=== PATIENT | female | born 1955 ===

== ENCOUNTER 2022-07-06 20:26 | Emergency (ER) | payer BC ==
--- OUTSIDE RECORDS SUMMARY | 2022-07-06 20:30 | XMS REPORT | Continuity of Care Document ---
:1955 Author Organization [facility] t Address [address] [place] [address] Care Team Providers Name Role Phone ANCELMO COLÓN Primary Care Physician Unavailable STACY LIVE Attending Clinician Unavailable Christy-Angela Gonzalez Attending Clinician Unknown, Attending Attending Clinician Unavailable ANGLEA GARCIA Attending Clinician Unavailable Mehrdad Bruce Attending Clinician Unavailable RIA ARGUETA Attending Clinician Unavailable Ria Vance Attending Clinician Doctor Unassigned, [place] Attending Clinician Unavailable SHANI BOUCHER Attending Clinician Unavailable Shani Guevara Attending Clinician MEME CARR Attending Clinician Unavailable Meme Vera Attending Clinician [phone] Jessee Sparks Attending Clinician JESSEE LU Attending Clinician Unavailable Provider, [facility] Attending Clinician Unavailable UNKNOWN, ATTENDING Attending Clinician Unavailable Lesli Eagle MD Attending Clinician LESLI EAGLE Attending Clinician Unavailable Kyle Graff MD Attending Clinician DC VINCENT Attending Clinician Unavailable CAOALBERTO Morris Christelle Attending Clinician Unavailable JOSE CAMARENA Attending Clinician Unavailable Sunil Patterson Attending Clinician SUNIL HSU Attending Clinician Unavailable Stacy Live DO Attending Clinician Only, Lcc Test Attending Clinician Unavailable Faustina Recinos RN Attending Clinician Unavailable Only, Web Test Attending Clinician Unavailable Jose Camarena MD Attending Clinician STACY LIVE Admitting Clinician Unavailable Ancelmo Colón Admitting Clinician Unavailable Stacy Live DO Admitting Clinician Payers Payer Name Policy Type Policy Number Effective Date Expiration Date [place] [facility] [place] [id number] 2017 00:00:00 OUT OF STATE Problems Condition Condition Condition Status Onset Resolution Last Treating Co mments Source Name Details Category Date Date Treatment Clinician Date Nausea and Nausea and Disease Active 2019-05 Overview : Univers vomiting, vomiting, - Added ity of intractabi intractabi 00:00: automatic [place] lity of lity of 00 ally from Medic al vomiting vomiting request Branc h not not for specified, specified, surgery unspecifie unspecifie [id number] d vomiting d vomiting type type Gastroesop Gastroesop Disease Active 2019-05 Overview : Univers hageal hageal 2- Formattin ity of reflux reflux 00:00: g of this [place] disease disease 00 note Medical without without might be Branch esophagiti esophagiti different s s from the original. Added automatic ally from request for surgery [id number] Colon Colon Disease Active 2019-05 Overview: Univer s cancer cancer 06-13 Formattin ity of screening screening 00:00: g of this [place] 00 note Medical might be Branch different from the original. Added automatic ally from request for surgery [id number] Tear of Tear of Disease Active 2010-05 Univers lateral lateral 07-08 [place]y of cartilage cartilage 00:00: [place] or [place] 00 Medical meniscus meniscus Branch of knee, of knee, current current Obesity Obesity Disease Active Overview: Univ ers 7-25 Formattin ity of 00:00: g of this [place] note Medical might be Branch different from the original. ICD10 Diagnosis Term Bungy Jump Master Utility HLD HLD Disease Active Overview: Univer s (hyperlipi (hyperlipi 5-27 Formattin ity of demia) demia) 00:00: g of this [place] note Medical might be Branch different from the original. ICD10 Diagnosis Term Bungy Jump Master Utility Essential Essential Disease Active Uni vers hypertensi hypertensi 5-27 it y of on, benign [place], benign [place] 00 Medical Branch ROYCE ROYCE Disease Active Univers (obstructi (obstructi 2-25 it y of ve sleep ve sleep 00:00: [place] apnea) apnea) Medical Branch Allergies, Adverse Reactions, Alerts Allergy Allergy Status Severity Reaction(s) Onset Inactive Treating Comm ents Source Name Type Date Date Clinician No Known DA Active [facility] Allergie 05-19 Clear s 00:00: [place] 00 [facility] NO KNOWN Drug Active [facility] ALLERGIE Class ity of S [facility] Social History Social Habit Start Date Stop Date Quantity Comments Source History of Cigarette Smoker Universi ty of tobacco use [facility] Exposure to 2022-04-06 2022-04-16 Not sure [facility] SARS-CoV-2 00:00:00 14:25:00 [place] Medical (event) Branch Alcohol intake 2022-04-16 2022-04-16 Current University of 00:00:00 00:00:00 non-drinker of [facility] alcohol (finding) Branch Tobacco use and 2020-04-11 2020-04-11 Smokeless tobacco Un iversity of exposure 00:00:00 00:00:00 non-user [facility] Sex Ass[birth year] Universit y of 00:00:00 00:00:00 [facility] Smoking Status Start Date Stop Date Source Smokes tobacco daily 2020-04-11 00:00:00 Univers ity of [facility] Medications Ordered Filled Start Stop Current Ordering Indication Dosage Frequency Signature Comments Components Source Medication Medication Date Date Medication? Clinician (SIG) Name Name cefdinir 2022- Yes [id number] 300mg Take 1 Un [place] 300 mg 06-28 capsule by ity of capsule 00:00: 05:59 mouth [place] 00 :00 every 12 Medical (twelve) Branch hours for 7 days. cephALEXin 2021-05- Yes [id number] 500mg Take 1 Univers 500 mg 06-17 capsule by ity of capsule 00:00: 05:59 mouth in [place] 00 :00 the Medical morning Branch and 1 capsule in the evening. Do all this for 7 days. benzonatate 2021-05- No [id number] 200mg Take 1 Univers 200 mg 05-1920 capsule by ity of capsule 00:00: 05:59 mouth 3 [place] 00 :00 (three) Medical times Branch daily as needed for Cough for up to 10 days. doxycycline 2021- No 100mg Take 1 Un [place] hyclate 100 08-15 tablet by it y of mg tablet 00:00: 04:59 mouth 2 [place] 00 :00 (two) Medical times Branch daily for 10 days. bromphenira 2021- No 5mL Take 5 mL Univers mine-pseudo 08-15 by mouth 4 i ty of ephedrine-D 00:00: 04:59 (four) [place] as M (BROMFED 00 :00 times Medical DM) 2-30-10 daily as Bran ch mg/5 mL needed for syrup Cold symptoms for up to 7 days. predniSONE 2021- No 20mg Take 1 Univ ers 20 mg 08-15 tablet by ity of tablet 00:00: 04:59 mouth [place] 00 :00 daily for Medical 5 days. Branch ofloxacin 2021- No [id number] 2[drp] Place 2 Univers 0.3 % 07-21 03-19 Drops in ity of ophthalmic 00:00: 04:59 right eye [place] solution 00 :00 4 (four) Medical times Branch daily for 5 days. erythromyci 2020- No .5[in_u 0.5 Inch, Univers n 11-12 07-05 s] Left Eye, ity of (ILOTYCIN) 10:00: 09:02 ONCE NOW, [place] 5 mg/gram 00 :00 1 dose, Medical (0.5 %) 11/12/20 Branch ophthalmic at 0500, ointment Routine 0.5 Inch ofloxacin 2020- No [id number] 1[drp] Place 1 Univers 0.3 % 11-12 [id number] Drop in ity of ophthalmic 00:00: 04:59 left eye 4 [place] solution 00 :00 (four) Medical times Branch daily for 5 days. ofloxacin 2020- No [id number] 1[drp] Place 1 Univers 0.3 % 11-12 [id number] Drop in ity of ophthalmic 00:00: 04:59 left eye 4 [place] solution 00 :00 (four) Medical times Branch daily for 5 days. ofloxacin 2020- No [id number] 1[drp] Place 1 Univers 0.3 % 11-12 [id number] Drop in ity of ophthalmic 00:00: 04:59 left eye 4 [place] solution 00 :00 (four) Medical times Branch daily for 5 days. cefdinir 0 Yes 300mg Take 300 Univ ers 300 mg 4-12 mg by ity of capsule 00:00: mouth (two) Medical times Branch daily. predniSONE 0 Yes TAKE 2 Unive rs 20 mg 4-12 TABLETS BY ity of tablet 00:00: MOUTH EVERY DAY Medical FOR 5 DAYS Branch cefdinir 2020-0 Yes 300mg Take 300 Univ ers 300 mg 4-12 mg by ity of capsule 00:00: mouth (two) Medical times Branch daily. predniSONE 2020-0 Yes TAKE 2 Unive rs 20 mg 4-12 TABLETS BY ity of tablet 00:00: MOUTH 00 EVERY DAY Medical FOR 5 DAYS Branch cefdinir 2020-0 Yes 300mg Take 300 Univ ers 300 mg 4-12 mg by ity of capsule 00:00: mouth (two) Medical times Branch daily. predniSONE 2020-0 Yes TAKE 2 Unive rs 20 mg 4-12 TABLETS BY ity of tablet 00:00: MOUTH 00 EVERY DAY Medical FOR 5 DAYS Branch cefdinir 2020-0 Yes 300mg Take 300 Univ ers 300 mg 4-12 mg by ity of capsule 00:00: mouth (two) Medical times Branch daily. predniSONE 2020-0 Yes TAKE 2 Unive rs 20 mg 4-12 TABLETS BY ity of tablet 00:00: MOUTH [place] 00 EVERY DAY Medical FOR 5 DAYS Branch cefdinir 2020-0 Yes 300mg Take 300 Univ ers 300 mg 4-12 mg by ity of capsule 00:00: mouth 2 [place] 00 (two) Medical times Branch daily. predniSONE 2020-0 Yes TAKE 2 Unive rs 20 mg 4-12 TABLETS BY ity of tablet 00:00: MOUTH [place] 00 EVERY DAY Medical FOR 5 DAYS Branch cefdinir 2020-0 Yes 300mg Take 300 Univ ers 300 mg 4-12 mg by ity of capsule 00:00: mouth 2 [place] 00 (two) Medical times Branch daily. predniSONE 2020-0 Yes TAKE 2 Unive rs 20 mg 4-12 TABLETS BY ity of tablet 00:00: MOUTH [place] 00 EVERY DAY Medical FOR 5 DAYS Branch cefdinir 2020-0 2- No 300mg Take 300 Uni vers 300 mg 4-12 04-07 mg by ity of capsule 00:00: 00:00 mouth 2 [place] 00 :00 (two) Medical times Branch daily. predniSONE 2020-0 2- No TAKE 2 Univ ers 20 mg 4-12 04-07 TABLETS BY ity of tablet 00:00: 00:00 MOUTH [place] 00 :00 EVERY DAY Medical FOR 5 DAYS Branch dextroamphe 2020-0 Yes 20mg Take 20 mg Univers tamine-amph 1-29 by mouth ity of etamine 17:17: daily. [place] (ADDERALL) 20 Medical 20 mg Branch tablet dextroamphe 2020-0 Yes 20mg Take 20 mg Univers tamine-amph 1-29 by mouth ity of etamine 17:17: daily. [place] (ADDERALL) 20 Medical 20 mg Branch tablet dextroamphe 2020-0 Yes 20mg Take 20 mg Univers tamine-amph 1-29 by mouth ity of etamine 17:17: daily. [place] (ADDERALL) 20 Medical 20 mg Branch tablet dextroamphe 2020-0 Yes 20mg Take 20 mg Univers tamine-amph 1-29 by mouth ity of etamine 17:17: daily. [place] (ADDERALL) 20 Medical 20 mg Branch tablet dextroamphe 2020-0 Yes 20mg Take 20 mg Univers tamine-amph 1-29 by mouth ity of etamine 17:17: daily. [place] (ADDERALL) 20 Medical 20 mg Branch tablet dextroamphe 1-0 Yes 20mg Take 20 mg Univers tamine-amph 1-29 by mouth ity of etamine 17:17: daily. [place] (ADDERALL) 20 Medical 20 mg Branch tablet dextroamphe 2021-0 Yes 20mg Take 20 mg Univers tamine-amph 1-29 by mouth ity of etamine 17:17: daily. [place] (ADDERALL) 20 Medical 20 mg Branch tablet dextroamphe 2021-0 Yes 20mg Take 20 mg Univers tamine-amph 1-29 by mouth ity of etamine 11:17: daily. [place] (ADDERALL) 20 Medical 20 mg Branch tablet dextroamphe 1-0 Yes 20mg Take 20 mg Univers tamine-amph 1-29 by mouth ity of etamine 11:17: daily. [place] (ADDERALL) 20 Medical 20 mg Branch tablet dextroamphe 2021-0 Yes 20mg Take 20 mg Univers tamine-amph 1-29 by mouth ity of etamine 11:17: daily. [place] (ADDERALL) 20 Medical 20 mg Branch tablet dextroamphe 1-0 Yes 20mg Take 20 mg Univers tamine-amph 1-29 by mouth ity of etamine 11:17: daily. [place] (ADDERALL) 20 Medical 20 mg Branch tablet dextroamphe 1-0 Yes 20mg Take 20 mg Univers tamine-amph 1-29 by mouth ity of etamine 11:17: daily. [place] (ADDERALL) 20 Medical 20 mg Branch tablet dextroamphe 1-0 Yes 20mg Take 20 mg Univers tamine-amph 1-29 by mouth ity of etamine 11:17: daily. [place] (ADDERALL) 20 Medical 20 mg Branch tablet dextroamphe 1-0 Yes 20mg Take 20 mg Univers tamine-amph 1-07 by mouth ity of etamine 18:10: daily. [place] (ADDERALL) 00 Medical 20 mg Branch tablet dextroamphe 2021-0 Yes 20mg Take 20 mg Univers tamine-amph 1-07 by mouth ity of etamine 18:10: daily. [place] (ADDERALL) 00 Medical 20 mg Branch tablet simethicone 2021-0 Yes PRN, Univer s (GAS RELIEF 05-17 Starting ity of (SIMETHICON 16:29: Ellen 05/17/20 [place] E)) 40 00 at 1029, Medical mg/0.6 mL Until Branch drops Discontinu ed, Routine, Intra-op lactated No 1000mL at 42 Unive rs ringers IV 05-17 01-07 mL/hr, ity of infusion 15:30: 15:29 1,000 mL, [place] as 1,000 mL 00 :00 IV Medical Infusion, Branch ONCE, 1 dose, Ellen 05/17/20 at 0930, Routine, Endo Pre-op dextroamphe Yes 20mg Take 20 mg Univers tamine-amph -06 by mouth ity of etamine 19:18: daily. [place] (ADDERALL) 42 Medical 20 mg Branch tablet PROZAC ORAL 2019-2019- [facility] Entered ity of 14:59: 00:00 [place] 42 :00 Medical Branch PROZAC ORAL 2019-2019- No None [facility] rs 06-12 Entered ity of 14:59: 00:00 [place] 42 :00 Medical Branch PROZAC ORAL 2019- 2020- No None [facility] rs 06-12 Entered ity of 14:59: 00:00 [place] 42 :00 Medical Branch dextroamphe 2019-05 Yes 20mg Take 20 mg Univers tamine-amph 2-02 by mouth ity of etamine 14:51: daily. [place] (ADDERALL) 38 Medical 20 mg Branch tablet dextroamphe 2019-05 Yes 20mg Take 20 mg Univers tamine-amph 2-02 by mouth ity of etamine 14:51: daily. [place] (ADDERALL) 38 Medical 20 mg Branch tablet dextroamphe 2019- Yes 20mg Take 20 mg Univers tamine-amph 2-02 by mouth ity of etamine 14:51: daily. [place] (ADDERALL) 38 Medical 20 mg Branch tablet dextroamphe 2019- Yes 20mg Take 20 mg Univers tamine-amph 2-02 by mouth ity of etamine 14:51: daily. [place] (ADDERALL) 38 Medical 20 mg Branch tablet dextroamphe 2019- Yes 20mg Take 20 mg Univers tamine-amph 2-02 by mouth ity of etamine 14:51: daily. [place] (ADDERALL) 38 Medical 20 mg Branch tablet WELLBUTRIN 2019-05 2020- No None Univer s ORAL 2-04-11 Entered ity of 14:50: 00:00 [place] 40 :00 Medical Branch WELLBUTRIN 2019-05- No None Univer s ORAL 2-04-11 Entered ity of 14:50: 00:00 [place] 40 :00 Medical Branch WELLBUTRIN 2019-05- No None Univer s ORAL 2-04-11 Entered ity of 14:50: 00:00 [place] 40 :00 Medical Branch omeprazole 2019-05 Yes [id number] 40mg Take 1 Univers 40 mg 2-02 capsule by ity of capsule 00:00: mouth [place] 00 daily. Medical Branch omeprazole 2019-05 Yes [id number] 40mg Take 1 Univers 40 mg 2-02 capsule by ity of capsule 00:00: mouth [place] 00 daily. Medical Branch omeprazole 2019-05 Yes [id number] 40mg Take 1 Univers 40 mg 2-02 capsule by ity of capsule 00:00: mouth [place] 00 daily. Medical Branch omeprazole 2019-05 Yes [id number] 40mg Take 1 Univers 40 mg 2-02 capsule by ity of capsule 00:00: mouth [place] 00 daily. Medical Branch omeprazole 2019-05 Yes [id number] 40mg Take 1 Univers 40 mg 2-02 capsule by ity of capsule 00:00: mouth [place] 00 daily. Medical Branch omeprazole 2019- Yes [id number] 40mg Take 1 Univers 40 mg 2-02 capsule by ity of capsule 00:00: mouth [place] 00 daily. Medical Branch omeprazole 2019- Yes [id number] 40mg Take 1 Univers 40 mg 2-02 capsule by ity of capsule 00:00: mouth [place] 00 daily. Medical Branch omeprazole 2019-05 Yes [id number] 40mg Take 1 Univers 40 mg 2-02 capsule by ity of capsule 00:00: mouth [place] 00 daily. Medical Branch omeprazole 2019-05- No [id number] 40mg Take 1 Univers 40 mg 2-02 - capsule by ity of capsule 00:00: 00:00 mouth [place] 00 :00 daily. Medical Branch omeprazole 2019-05- No [id number] 40mg Take 1 Univers 40 mg 2-02 -29 capsule by ity of capsule 00:00: 00:00 mouth [place] 00 :00 daily. Medical Branch sodium,pota 2019-05 2020- No [id number] 1U Take 1 Univers ssium,mag 2 12-03 Units by ity o f sulfates 00:00: 05:59 mouth [place] (SUPREP 00 :00 now for 1 Medical BOWEL PREP dose. Branch KIT) 17.5-3.13-1 .6 gram SolR sodium,pota 2019-05 2020- No [id number] 1U Take 1 Univers ssium,mag 2- 12-03 Units by ity o f sulfates 00:00: 05:59 mouth once [place] (SUPREP 00 :00 now for 1 Medical BOWEL PREP dose. Branch KIT) 17.5-3.13-1 .6 gram SolR sodium,pota 2019-05 2020- No [id number] 1U Take 1 Univers ssium,mag 06-12 12-03 Units by ity o f sulfates 00:00: 05:59 mouth once [place] (SUPREP 00 :00 now for 1 Medical BOWEL PREP dose. Branch KIT) 17.5-3.13-1 .6 gram SolR sodium,pota 2019-05 2020- No [id number] 1U Take 1 Univers ssium,mag 06-12 12-03 Units by ity o f sulfates 00:00: 05:59 mouth [place] (SUPREP 00 :00 now for 1 Medical BOWEL PREP dose. Branch KIT) 17.5-3.13-1 .6 gram SolR WELLBUTRIN Yes None Univers ORAL 1-04 Entered ity of 21:37: [address] PROZAC ORAL Yes None Univer s 1-04 Entered ity of 21:37: [address] WELLBUTRIN Yes None Univers ORAL 1-04 Entered ity of 21:37: [address] PROZAC ORAL Yes None Univer s 1-04 Entered ity of 21:37: [address] WELLBUTRIN Yes None Univers ORAL 1-04 Entered ity of 21:37: [address] PROZAC ORAL Yes None Univer s 1-04 Entered ity of 21:37: [address] hydrocodone Yes 1{tbl} Take 1 Tab Univers -acetaminop 1-04 by mouth ity of [place] (NORCO 00:00: every 6 [place] 5) 5-325 mg 00 (six) Medical tablet hours as Branch needed for Pain. hydrocodone Yes 1{tbl} Take 1 Tab Univers -acetaminop 1-04 by mouth ity of hen (NOR[place] 00:00: every 6 [place] 5) 5-325 mg 00 (six) Medical tablet hours as Branch needed for Pain. hydrocodone Yes 1{tbl} Take 1 Tab Univers -acetaminop 1-04 by mouth ity of hen (NOR[place] 00:00: every 6 [place] 5) 5-325 mg 00 (six) Medical tablet hours as Branch needed for Pain. hydrocodone 2020- No 1{tbl} Take 1 Tab Univers -acetaminop 1-04 12-02 by mouth ity of hen (NORCO 00:00: 00:00 every 6 [place] 5) 5-325 mg 00 :00 (six) Medical tablet hours as Branch needed for Pain. hydrocodone 2020- No 1{tbl} Take 1 Tab Univers -acetaminop 1-04 12-02 by mouth ity of hen (NORCO 00:00: 00:00 every 6 [place] 5) 5-325 mg 00 :00 (six) Medical tablet hours as Branch needed for Pain. hydrocodone 2020- No 1{tbl} Take 1 Tab Univers -acetaminop 1-04 12-02 by mouth ity of hen (NORCO 00:00: 00:00 every 6 [place] as 5) 5-325 mg 00 :00 (six) Medical tablet hours as Branch needed for Pain. losartan Yes 100mg Take 1 Tab Un beulah (COZAAR) 6-17 by mouth ity of 100 mg 00:00: daily. [place] tablet 00 Medical Branch losartan Yes 100mg Take 1 Tab Un beulah (COZAAR) 6-17 by mouth ity of 100 mg 00:00: daily. [place] tablet 00 Medical Branch losartan Yes 100mg Take 1 Tab Un beulah (COZAAR) 6-17 by mouth ity of 100 mg 00:00: daily. [place] tablet 00 Medical Branch losartan 2020- No 100mg Take 1 Tab U nivers (COZAAR) 10-25 by mouth ity of 100 mg 00:00: 00:00 daily. [place] tablet 00 :00 Medical Branch losartan 2020- No 100mg Take 1 Tab U nivers (COZAAR) 10-25 by mouth ity of 100 mg 00:00: 00:00 daily. [place] tablet 00 :00 Medical Branch losartan 2020- No 100mg Take 1 Tab U nivers (COZAAR) 10-25 by mouth ity of 100 mg 00:00: 00:00 daily. [place] tablet 00 :00 Medical Branch Immunizations Ordered Filled Immunization Date Status Comments [facility] e Immunization Name Name Pfizer COVID-19 Pfizer COVID-19 2021-05-08 Completed Vaccine Vaccine 00:00:00 SARS-COV-2 COVID-19 2020-07-25 Completed Unive rsity of PFIZER VACCINE 00:00:00 [facility] SARS-COV-2 COVID-19 2020-07-25 Completed Unive rsity of PFIZER VACCINE 00:00:00 [facility] SARS-COV-2 COVID-19 2020-07-25 Completed Unive rsity of PFIZER VACCINE 00:00:00 [facility] SARS-COV-2 COVID-19 2020-07-25 Completed Unive rsity of PFIZER VACCINE 00:00:00 [facility] SARS-COV-2 COVID-19 2020-07-25 Completed Unive rsity of PFIZER VACCINE 00:00:00 [facility] SARS-COV-2 COVID-19 2020-07-25 Completed Unive rsity of PFIZER VACCINE 00:00:00 [facility] SARS-COV-2 COVID-19 2020-07-25 Completed Unive rsity of PFIZER VACCINE 00:00:00 [facility] SARS-COV-2 COVID-19 2020-07-25 Completed Unive rsity of PFIZER VACCINE 00:00:00 [facility] SARS-COV-2 COVID-19 2020-07-25 Completed Unive rsity of PFIZER VACCINE 00:00:00 [facility] SARS-COV-2 COVID-19 2020-07-25 Completed Unive rsity of PFIZER VACCINE 00:00:00 [facility] SARS-COV-2 COVID-19 2020-07-25 Completed Unive rsity of PFIZER VACCINE 00:00:00 [facility] Pfizer COVID-19 Pfizer COVID-19 2020-07-25 Completed Vaccine Vaccine 00:00:00 SARS-COV-2 COVID-19 2020-07-04 Completed Unive rsity of PFIZER VACCINE 00:00:00 [facility] SARS-COV-2 COVID-19 2020-07-04 Completed Unive rsity of PFIZER VACCINE 00:00:00 [facility] SARS-COV-2 COVID-19 2020-07-04 Completed Unive rsity of PFIZER VACCINE 00:00:00 [facility] SARS-COV-2 COVID-19 2020-07-04 Completed Unive rsity of PFIZER VACCINE 00:00:00 [facility] SARS-COV-2 COVID-19 2020-07-04 Completed Unive rsity of PFIZER VACCINE 00:00:00 [facility] SARS-COV-2 COVID-19 2020-07-04 Completed Unive rsity of PFIZER VACCINE 00:00:00 [facility] SARS-COV-2 COVID-19 2020-07-04 Completed Unive rsity of PFIZER VACCINE 00:00:00 [facility] SARS-COV-2 COVID-19 2020-07-04 Completed Unive rsity of PFIZER VACCINE 00:00:00 [facility] SARS-COV-2 COVID-19 2020-07-04 Completed Unive rsity of PFIZER VACCINE 00:00:00 [facility] SARS-COV-2 COVID-19 2020-07-04 Completed Unive rsity of PFIZER VACCINE 00:00:00 [facility] SARS-COV-2 COVID-19 2020-07-04 Completed Unive rsity of PFIZER VACCINE 00:00:00 [facility] Pfizer COVID-19 Pfizer COVID-19 2020-07-04 Completed Vaccine Vaccine 00:00:00 Vital Signs Vital Name Observation Time Observation Value Comments Source Systolic blood 2022-06-28 21:55:00 142 mm[Hg] Univer sity of pressure [facility] Diastolic blood 2022-06-28 21:55:00 97 mm[Hg] Unive rsity of pressure [place] [facility] Heart rate 2022-06-28 21:55:00 98 /min [facility] [place] [facility] Body temperature 2022-06-28 21:55:00 36.89 Shabnam Univ ersity of [place] [facility] Respiratory rate 2022-06-28 21:55:00 16 /min Univ ersity of [place] [facility] Body height 2022-06-28 21:55:00 165.1 cm [facility] [place] [facility] Body weight 2022-06-28 21:55:00 76.431 kg [facility] [place] [facility] BMI 2022-06-28 21:55:00 28.04 kg/m2 Univers[facility] ty of [place] [facility] Oxygen saturation in 2022-06-28 21:55:00 100 /min University of Arterial blood by [facility] Pulse oximetry Branch Systolic blood 2022-04-16 20:21:00 126 mm[Hg] Univer sity of pressure [place] [facility] Diastolic blood 2022-04-16 20:21:00 77 mm[Hg] Unive rsity of pressure [place] [facility] Heart rate 2022-04-16 20:21:00 101 /min Universi ty [facility] [place] [facility] Body temperature 2022-04-16 20:21:00 36.72 Shabnam Univ ersity of [place] [facility] Respiratory rate 2022-04-16 20:21:00 20 /min Univ ersity of [place] [facility] Body weight 2022-04-16 20:21:00 77.111 kg [facility]i [facility] [place] [facility] BMI 2022-04-16 20:21:00 28.29 kg/m2 Univers[facility] [place] [facility] Oxygen saturation in 2022-04-16 20:21:00 98 /min University of Arterial blood by [facility] Pulse oximetry Branch Systolic blood 2022-03-20 00:18:00 140 mm[Hg] Univer sity of pressure [place] [facility] Diastolic blood 2022-03-20 00:18:00 90 mm[Hg] Unive rsity of pressure [place] [facility] Heart rate 2022-03-20 00:09:00 98 /min [facility] [place] [facility] Body temperature 2022-03-20 00:09:00 37.61 Shabnam Univ ersity of [place] [facility] Respiratory rate 2022-03-20 00:09:00 18 /min Univ ersity of [place] [facility] Body height 2022-03-20 00:09:00 165.1 cm [facility] [place] [facility] Body weight 2022-03-20 00:09:00 79.379 kg [facility] [place] [facility] BMI 2022-03-20 00:09:00 29.12 kg/m2 [facility] [place] [facility] Oxygen saturation in 2022-03-20 00:09:00 100 /min University of Arterial blood by [facility] Pulse oximetry Branch Systolic blood 2021-08-15 18:05:00 149 mm[Hg] Univer sity of pressure [place] [facility] Diastolic blood 2021-08-15 18:05:00 89 mm[Hg] Unive rsity of pressure [place] [facility] Heart rate 2021-08-15 17:58:00 104 /min [facility] [place] [facility] Body temperature 2021-08-15 17:58:00 37.11 Shabnam Univ ers[facility] [place] [facility] Respiratory rate 2021-08-15 17:58:00 19 /min Univ ersity [facility] [place] [facility] Body height 2021-08-15 17:58:00 167.6 cm [facility] [place] [facility] Body weight 2021-08-15 17:58:00 84.777 kg [facility] [place] [facility] BMI 2021-08-15 17:58:00 30.17 kg/m2 [facility] [place] [facility] Oxygen saturation in 2021-08-15 17:58:00 100 /min University of Arterial blood by [facility] Pulse oximetry Branch Systolic blood 2021-07-22 00:15:00 135 mm[Hg] Univer sity of pressure [facility] Diastolic blood 2021-07-22 00:15:00 91 mm[Hg] Unive rsity of pressure [facility] Heart rate 2021-07-22 00:15:00 98 /min [facility] Body temperature 2021-07-22 00:15:00 36.89 Shabnam Univ ersity [facility] Respiratory rate 2021-07-22 00:15:00 16 /min Univ [facility] Body height 2021-07-22 00:15:00 167.6 cm [facility] Body weight 2021-07-22 00:15:00 85.186 kg [facility] BMI 2021-07-22 00:15:00 30.31 kg/m2 [facility] Oxygen saturation in 2021-07-22 00:15:00 100 /min [facility] of Arterial blood by [facility] Pulse oximetry Branch Body height 2020-11-14 20:19:00 167.6 cm Universi ty of [facility] Branch Body weight 2020-11-14 20:19:00 81.647 kg [facility] BMI 2020-11-14 20:19:00 29.05 kg/m2 [facility] Systolic blood 2020-11-12 07:58:00 181 mm[Hg] Univer sity of [facility] Diastolic blood 2020-11-12 07:58:00 97 mm[Hg] Unive rsity of [facility] Heart rate 2020-11-12 07:58:00 76 /min Universi ty of [facility] Body temperature 2020-11-12 07:58:00 36.67 Shabnam Univ ersity of [facility] Respiratory rate 2020-11-12 07:58:00 17 /min Univ ersity of [facility] Branch Body height 2020-11-12 07:58:00 167.6 cm [facility] Body weight 2020-11-12 07:58:00 81.647 kg [facility] BMI 2020-11-12 07:58:00 29.05 kg/m2 Universi ty of [facility] Oxygen saturation in 2020-11-12 07:58:00 100 /min University of Arterial blood by [facility] Pulse oximetry Branch Systolic blood 2020-06-08 17:16:00 134 mm[Hg] Univer sity of [facility] Diastolic blood 2020-06-08 17:16:00 95 mm[Hg] Unive rsity of pressure [facility] Branch Heart rate 2020-06-08 17:16:00 95 /min Universi ty of [facility] Body temperature 2020-06-08 17:13:00 36.06 Shabnam Univ ersity of [facility] Body height 2020-06-08 17:13:00 167.6 cm [facility] Body weight 2020-06-08 17:13:00 81.466 kg [facility] BMI 2020-06-08 17:13:00 28.99 kg/m2 [facility] Oxygen saturation in 2020-06-08 17:13:00 99 /min [facility] Arterial blood by [facility] Pulse oximetry Branch Heart rate 2020-05-17 17:50:00 83 /min [facility] Oxygen saturation in 2020-05-17 17:50:00 99 /min [facility] Arterial blood by [facility] Pulse oximetry Branch Respiratory rate 2020-05-17 17:45:00 15 /min [facility] Systolic blood 2020-05-17 17:40:00 140 mm[Hg] Univer sity of [facility] Diastolic blood 2020-05-17 17:40:00 107 mm[Hg] Unive rsity of [facility] [place] Body temperature 2020-05-17 17:30:00 36 Shabnam [facility] [place] Body height 2020-05-17 15:13:00 166.4 cm [facility]i [facility] Body weight 2020-05-17 15:13:00 80.74 kg [facility] BMI 2020-05-17 15:13:00 29.17 kg/m2 [facility] Body temperature 2020-04-11 14:46:00 36.72 Shabnam [facility] [place] Body height 2020-04-11 14:46:00 167.6 cm [facility] Body weight 2020-04-11 14:46:00 85.322 kg [facility] BMI 2020-04-11 14:46:00 30.36 kg/m2 [facility] Oxygen saturation in 2020-04-11 14:46:00 99 /min [facility] Arterial blood by [facility] Pulse oximetry Branch Procedures Procedure Date / Time Performing Clinician Source Performed ASSIGNMENT OF BENEFITS 2022-04-16 20:12:37 Doctor Unassigned, Un [facility] [place] [facility] POCT URINALYSIS 2022-04-16 00:00:00 Rufino Petaca o f [facility] POCT MOLECULAR STREP 2022-03-20 00:16:00 Unknown, Attending [facility] POCT MOLECULAR STREP 2021-08-15 18:09:00 Unknown, Attending Univ [facility] CONSENT/REFUSAL FOR 2020-11-12 07:50:53 Doctor Unassigned, [facility] DIAGNOSIS AND TREATMENT [place] [facility] NO SHOW OR MISSED 2020-06-08 17:03:32 Doctor Unassigned, [facility] APPOINTMENT POLICY [place] [facility] ACKNOWLEDGEMENT ASSIGNMENT OF BENEFITS 2020-05-17 14:49:35 [facility] [place] [facility] [place] COLONOSCOPY (ENDO) 2020-05-17 14:29:17 Sunil [facility] EGD (ENDO) 2020-05-17 14:16:03 Bari Andrade [facility] DISCLOSURE AND CONSENT, 2020-04-11 06:01:00 Doctor Unassigned, U [facility] MEDICAL AND SURGICAL [place] [facility] PROCEDURES Encounters Start End Encounter Admission Attending Care Care Encounter Source Date/Time Date/Time Type Type Clinicians Facility Department ID 2021-03-11 Emergency [facility] [id number] Univers [facility] 2021-03-09 Outpatient Soledad LIVE [facility] THEODORA [id number] Univers 13:50:29 STACY [facility] 2022-06-28 2022-06-28 Urgent Christy-Angela Tse [facility] 1.2.84 0.114 [id number] Univers 15:45:00 16:00:00 Care Unknown, Attending [id number] [id number] [address] [place] 2022-06-28 2022-06-28 Outpatient R CHRISTY-MEMBRENO [facility] [id number] Univers 15:45:00 15:45:00 ANGELA Mejias [facility] 2022-05-30 2022-05-30 Emergency DUONG Buckley [id number] [facility] 01:59:00 03:15:[address] [place] [address] 2022-04-16 2022-04-16 Outpatient R ELLIE [facility] [id number] Univers 14:30:00 14:55:15 RIA ity [facility] 2022-04-16 2022-04-16 Urgent Ria Argueta [facility] [id number] Univers 14:30:00 14:45:00 Care Unknown, Attending LEJACK [id number] ity [place] [address] [place] [phone] 2022-04-16 2022-04-16 Orders Doctor ANCELMO 1.2.840.114 [id number] Univers 00:00:00 00:00:00 Only Unassigned, TAYLOR [id number] ity [place] [address]...[address] [place] [id number] 2022-03-19 2022-03-19 Outpatient R TIO [facility] [id number] Univers 17:45:00 19:37:37 SHANI ity [facility] 2022-03-19 2022-03-19 Urgent Shani Boucher [facility] 1.2.840.1 [id number] Univers 17:45:00 19:37:37 Care Unknown, Attending LEJACK [id number] ity [place] [address] [place] [phone] 2021-08-15 2021-08-15 Outpatient R KAY [facility] [id number] Univers 13:00:00 13:35:34 MEME HARDWICK ity [facility] 2021-08-15 2021-08-15 Urgent Meme Carr F [facility] 1. 2.840.114 [id number] Univers 13:00:00 13:35:34 Care Unknown, Attending LEJACK [id number] ity [place] [address] [place] [phone] 2021-07-21 2021-07-21 Urgent Jessee Lu [facility] 1.2.840.1 [id number] Univers 19:15:00 19:30:00 Care Unknown, Attending LEAGUE [id number] ity of [place] [id number] [facility] [phone] [address] 2021-07-21 2021-07-21 Outpatient Soledad LU [facility] [id number] Univers 19:15:00 19:15:00 JESSEE ity [facility] 2021-05-08 2021-05-08 Outpatient GCCOVIDV GCCOVIDV [id number] GCCOVID 00:00:00 00:00:00 V 2020-12-04 2020-12-04 Urgent Provider, [facility] Urgent Care [facility] 1.2.840.114 [id number] Univers 12:41:45 12:56:45 Care Unknown, Attending League [id number] ity of [facility] [id number] [facility] [id number] [address] 2020-12-04 2020-12-04 Outpatient R KENNEDY [facility] [id number] Univers 12:45:00 12:45:00 ATTENDING [facility] 2020-11-14 2020-11-14 Office [facility] 1.2.840.114 [id number] Univers 15:07:14 15:22:14 Visit [facility] [id number] it y of E[place] [id number] [facility] [phone] [address] 2020-11-14 2020-11-14 Outpatient Soledad EAGLE [facility] [id number] Univers 15:00:00 15:00:00 [facility] 2020-11-12 2020-11-12 Emergency Dajuan [facility] [id number] Univers 02:59:00 04:08:00 [facility] [id number] it y of [place] [id number] [facility] [phone] [address] ([facility]) 2020-09-17 2020-09-17 Outpatient Soledad VINCENT [facility] [id number] Univers 15:15:00 15:15:00 DC [facility] 2020-09-12 2020-09-12 Outpatient R NASH, [facility] [id number] Univers 13:15:00 13:15:00 [facility] 2020-07-25 2020-07-25 Outpatient Soledad CAMARENA [facility] [id number] Univers 07:10:00 07:10:00 JOSE [facility] 2020-07-25 2020-07-25 Outpatient GCCOVIDV GCCOVIDV [id number] GCCOVID 00:00:00 00:00:00 V 2020-07-04 2020-07-04 Outpatient Soledad CAMARENA, [facility] [id number] Univers 11:10:00 11:10:00 JOSE [facility] 2020-07-04 2020-07-04 Outpatient GCCOVIDV GCCOVIDV [id number] GCCOVID 00:00:00 00:00:00 V 2020-06-08 2020-06-08 Office [facility] 1.2.840.114 [id number] Univers 11:04:01 11:34:01 Visit Sunil DELGADO [id number] ity of [facility] [id number] [facility] AT [phone] Wi [address] 2020-06-08 2020-06-08 [facility] [id number] Univers 11:00:00 11:00:00 SUNIL [facility] 2020-06-08 2020-06-08 Orders Doctor ANCELMO 1.2.840.114 [id number] Univers 00:00:00 00:00:00 Only Unassigned, TAYLOR [id number] ity of [place] [facility] [id number] Yifan as [id number] [place] [address] Branch 2020-05-17 2020-05-17 [facility] 1.2.840.114 [id number] Univers 08:49:00 12:05:00 Encounter Stacy Bear [facility] [id number] ity [id number] [place] [facility] [phone] [address] ([facility]) 2020-05-17 2020-05-17 Orders Doctor AG 1.2.840.114 [id number] Univers 00:00:00 00:00:00 Only Unassigned, TAYLOR [id number] ity of [place] [facility]PITAL [id number] Yifan as [phone] [address] 2020-05-15 2020-05-15 Laboratory Only, [facility] Test [facility] 1.2.840. 114 [id number] Univers 08:55:17 09:10:17 Only Stacy Live SPECIALTY [id number]. 10 ity of C[id number] C[place] AT [phone] Wi gema WARREN [address] [facility] 2020-05-15 2020-05-15 Outpatient Soledad LIVE [facility] [id number] Univers 08:45:00 08:45:00 STACY day o f [facility] 2020-04-11 2020-04-11 Office [facility] 1.2.840.114 [id number] Univers 08:32:56 09:02:56 Visit Sunil DELGADO [id number] ity of [place] CARE [id number] [facility] AT [phone] Wi gema WARREN [address] [place] [address] 2020-04-11 2020-04-11 [facility]patient [facility] [id number] Univers 09:00:00 09:00:00 SUNIL ity of [facility] 2020-04-11 2020-04-11 Orders Doctor AG 1.2.840.114 [id number] Univers 00:00:00 00:00:00 Only Unassigned, TAYLOR [id number] ity of [place] HOSPITAL [id number] Yifan as [phone] [address] 2020-03-27 2020-03-27 Letter ANCELMO Recinos 1.2.840.114 [id number] Univers 00:00:00 00:00:00 (Out) Faustina VAZQUEZ [id number] it y of HOSPITAL [id number] Yifan as [id number] [facility] 019 [place] 2020-03-26 2020-03-26 Laboratory Only, Web Test [facility] 1.2.840. 114 [id number] Univers 08:43:52 08:58:52 Only Jose Camarena [facility] [id number] ity of [id number] - [phone] [facility] 314 [place] 2020-03-26 2020-03-26 Outpatient R BUFFY, [facility] [id number] Univers 08:45:00 08:45:00 JOSE [facility] 2019-12-05 2019-12-05 Outpatient R KENNEDY, [facility] [id number] Univers 08:15:00 08:15:00 ATTENDING [facility] 2019-12-05 2019-12-05 Letter Doctor AG 1.2.840.114 [id number] Univers 00:00:00 00:00:00 (Out) UnassignedTAYLOR [id number] ity of [place] HOSPITAL [id number] Yifan as [phone] [address] Results Test Description Test Time Test Comments Results Result Comments Source POCT URINALYSIS W SPECIFIC GRAVITY 2022-04-16 20:31:00 Test Item Value Reference Range Interpretation Comme nts POCT U SP GRAV (test code = 1.015 mg/dl 1.005-1.025 3255) POCT PH U (test code = 3254) 5 mg/dl 5-8 POCT U LEUK EST (test code = ++ Negative - Negative 3263) POCT U NIT (test code = 3262) Negative Negative - Negative POCT U PROT (test code = 3259) Trace Negative - Negative POCT U GLU (test code = 3256) Negative Negative - Negative POCT U KETONE (test code = Negative Negative - Negative 3258) POCT U UROBILI (test code = Normal 0.2-1 3260) POCT U BILI (test code = 3261) Negative Negative - Negative POCT U BLD (test code = 3257) About 250 Vitor/uL Negative - Negative POCT U COLOR (test code = 3266) Yellow POCT U APPEAR (test code = Cloudy 3267) NIGEL (test code = NIGEL) accurate development and interpretation of all internal controls Lab Interpretation (test code = Abnormal 72975-9) [facility] MOLECULAR [id number] 00:24:19 Test Item Value Reference Range Interpretation Comments POCT Molecular Strep (test code = Negative Negative 52918-0) Lab Interpretation (test code = Normal 98989-6) [facility] MOLECULAR [id number] 18:19:53 Test Item Value Reference Range Interpretation Comments POCT Molecular Strep (test code = Negative Negative 06463-3) Lab Interpretation (test code = Normal 81713-8) [facility]
--- NOTE | 2022-07-06 22:37 | ER ---
Nurse's Notes [facility] Name: Janis Arevalo Age: 66 yrs Sex: Female : 1955 Arrival Date: 07/06/2022 Time: 20:36 Bed 12 Private MD: Diagnosis: Elbow sprain, right elbow contusion, benign positional vertigo Presentation: 07/06 20:59 Chief complaint: Patient states: I seems like I blacked out, I had vertigo recently, ll3 reports a fall outside on concrete, c/o right elbow, left knee, and forehead pain 8/10. Coronavirus screen: Vaccine status: Patient reports receiving the 2nd dose of the covid vaccine. At this time, the client does not indicate any symptoms associated with coronavirus-19. Ebola Screen: No symptoms or risks identified at this time. Initial Sepsis Screen: Does the patient meet any 2 criteria? No. Patient's initial sepsis screen is negative. Does the patient have a suspected source of infection? No. Patient's initial sepsis screen is negative. Risk Assessment: Do you want to hurt yourself or someone else? Patient reports no desire to harm self or others. Onset of symptoms was July 06, 2022 at 19:00. 20:59 Method Of Arrival: Ambulatory ll3 20:59 Acuity: VIDAL 3 ll3 Triage Assessment: 21:37 General: Appears uncomfortable, Behavior is calm, cooperative. Pain: Complains of pain ll3 in forehead, right elbow and left knee Pain does not radiate. Pain currently is 8 out of 10 on a pain scale. Neuro: Level of Consciousness is awake, alert, obeys commands, Oriented to person, place, time, situation. Musculoskeletal: Circulation, motion, and sensation intact. Reports pain in right elbow and left knee Pain is 8 out of 10 on a pain scale. Injury Description: fall. Historical: - Allergies: 21:02 No Known Allergies; ll3 - Home Meds: 21:02 lisinopril 20 mg Oral tab 1 tab once daily [Active]; ll3 - PMHx: 21:02 Hypertensive disorder; ll3 - PSHx: 21:02 Total abdominal hysterectomy; Cholecystectomy; ll3 - Immunization history:: Client reports receiving the 2nd dose of the Covid vaccine. - Social history:: Smoking status: Patient reports the use of cigarette tobacco products, denies chronic smoking, but will smoke occasionally. Screenin:42 [facility] ED Fall Risk Assessment (Adult) History of falling in the last 3 months, ll3 including since admission Yes- single mechanical fall (1 pt) Confusion or Disorientation No (0 pts) Intoxicated or Sedated No (0 pts) Impaired Gait No (0 pts) Mobility Assist Device Used No (0 pt) Altered Elimination No (0 pt) Score/Fall Risk Level 0 - 2 = Low Risk Oriented to surroundings, Maintained a safe environment, Educated pt \T\ family on fall prevention, incl call for assistance when getting out of bed. Abuse screen: Denies threats or abuse. Denies injuries from another. Nutritional screening: No deficits noted. Tuberculosis screening: No symptoms or risk factors identified. Vital Signs: 20:59 BP 117 / 75; Pulse 97; Resp 16; Temp 98.7(O); Pulse Ox 100% on R/A; Weight 72.57 kg ll3 (R); Height 5 ft. 5 in. (165.10 cm) (R); Pain 8/10; 20:59 Body Mass Index 26.63 (72.57 kg, 165.10 cm) ll3 ED Course: 20:36 Patient arrived in ED. ag3 21:02 Triage completed. ll3 21:02 Arm band placed on. ll3 21:10 Nicci Teague MD is Attending Physician. sp3 22:42 Patient has correct armband on for positive identification. Bed in low position. Call ll3 light in reach. Side rails up X 1. Adult w/ patient. 22:42 No provider procedures requiring assistance completed. Patient did not have IV access ll3 during this emergency room visit. Administered Medications: No medications were administered Medication: 22:43 VIS not applicable for this client. ll3 Outcome: 22:36 Discharge ordered by . sp3 22:42 Discharged to home ambulatory. ll3 22:42 Condition: stable 22:42 Discharge instructions given to patient, family, Instructed on discharge instructions, follow up and referral plans. medication usage, Demonstrated understanding of instructions, follow-up care, medications, Prescriptions given X 1. 22:43 Patient left the ED. ll3 Signatures: Loli Poole 3 Nicci Teague MD MD sp3 Loubet, Lynsea, RN RN ll3
--- NOTE | 2022-07-06 22:37 | EDPHYS ---
Physician Documentation [facility] Name: Janis Arevalo Age: 66 yrs Sex: Female : 1955 Arrival Date: 07/06/2022 Time: 20:36 Bed 12 Private MD: ED Physician Nicci Teague HPI: 07/06 22:01 This 66 yrs old Female presents to ER via Ambulatory with complaints of Elbow Injury, sp3 Fall Injury. 22:01 66-year-old female with history of hypertension presents with right elbow pain after sp3 ground-level fall likely mechanical in nature just prior to arrival. Patient is here with her sister who states that she has been having some vertigo type symptoms over the last week. She was seen at a local urgent care where she was diagnosed with a left otitis media and given antibiotics for which she has finished but periodically still has the symptoms. She does not think that those symptoms occurred today but is unsure. She denies any head injury, loss of consciousness, continuing vertigo, chest pain, syncope, near syncope, lightheadedness, shortness of breath, nausea, vomiting, diarrhea, fever, URI symptoms, focal neurodeficit, or any other symptoms on ROS at this time.. Historical: - Allergies: 21:02 No Known Allergies; ll3 - Home Meds: 21:02 lisinopril 20 mg Oral tab 1 tab once daily [Active]; ll3 - PMHx: 21:02 Hypertensive disorder; ll3 - PSHx: 21:02 Total abdominal hysterectomy; Cholecystectomy; ll3 - Immunization history:: Client reports receiving the 2nd dose of the Covid vaccine. - Social history:: Smoking status: Patient reports the use of cigarette tobacco products, denies chronic smoking, but will smoke occasionally. ROS: 22:02 Constitutional: Negative for fever, chills, and weight loss, Eyes: Negative for injury, sp3 pain, redness, and discharge, Neck: Negative for injury, pain, and swelling, Cardiovascular: Negative for chest pain, palpitations, and edema, Respiratory: Negative for shortness of breath, cough, wheezing, and pleuritic chest pain, Abdomen/GI: Negative for abdominal pain, nausea, vomiting, diarrhea, and constipation, Back: Negative for injury and pain, Skin: Negative for injury, rash, and discoloration, Psych: Negative for depression, anxiety, suicide ideation, homicidal ideation, and hallucinations, Allergy/Immunology: Negative for hives, rash, and allergies, Endocrine: Negative for neck swelling, polydipsia, polyuria, polyphagia, and marked weight changes, Hematologic/Lymphatic: Negative for swollen nodes, abnormal bleeding, and unusual bruising. 22:02 All other systems are negative. Exam: 22:02 Constitutional: This is a well developed, well nourished patient who is awake, alert, sp3 and in no acute distress. Head/Face: Normocephalic, atraumatic. Eyes: Pupils equal round and reactive to light, extra-ocular motions intact. Lids and lashes normal. Conjunctiva and sclera are non-icteric and not injected. Cornea within normal limits. Periorbital areas with no swelling, redness, or edema. ENT: Nares patent. No nasal discharge, no septal abnormalities noted. External auditory canals are clear. Oropharynx with no redness, swelling, or masses, exudates, or evidence of obstruction, uvula midline. Mucous membranes moist. Neck: Trachea midline, no thyromegaly or masses palpated, and no cervical lymphadenopathy. Supple, full range of motion without nuchal rigidity, or vertebral point tenderness. No Meningismus. Chest/axilla: Normal chest wall appearance and motion. Nontender with no deformity. No lesions are appreciated. Cardiovascular: Regular rate and rhythm with a normal S1 and S2. No gallops, murmurs, or rubs. Normal PMI, no JVD. No pulse deficits. Respiratory: Lungs have equal breath sounds bilaterally, clear to auscultation and percussion. No rales, rhonchi or wheezes noted. No increased work of breathing, no retractions or nasal flaring. Abdomen/GI: Soft, non-tender, with normal bowel sounds. No distension or tympany. No guarding or rebound. No evidence of tenderness throughout. Skin: Warm, dry with normal turgor. Normal color with no rashes, no lesions, and no evidence of cellulitis. Neuro: Awake and alert, GCS 15, oriented to person, place, time, and situation. Cranial nerves II-XII grossly intact. Motor strength 5/5 in all extremities. Sensory grossly intact. Cerebellar exam normal. Normal gait. Psych: Awake, alert, with orientation to person, place and time. Behavior, mood, and affect are within normal limits. 22:02 Musculoskeletal/extremity: Patient has pain on the lateral and medial epicondyles of her elbow without joint effusion. Range of motion elicits pain along with pronation and supination. Distal neurovascular exam is normal including radial pulse, hand muscle exam, capillary refill, pain and temperature, sensory as well as proprioception.. Vital Signs: 20:59 BP 117 / 75; Pulse 97; Resp 16; Temp 98.7(O); Pulse Ox 100% on R/A; Weight 72.57 kg ll3 (R); Height 5 ft. 5 in. (165.10 cm) (R); Pain 8/10; 20:59 Body Mass Index 26.63 (72.57 kg, 165.10 cm) ll3 MDM: 22:11 Data reviewed: vital signs, nurses notes. ED course: 66-year-old with possible benign sp3 positional vertigo and right elbow pain/pathology. X-ray of the right elbow will be obtained and dispositioned accordingly. Patient has no signs of infection in her ear, has not had any ringing in her ear, and patient has no nystagmus. I do not believe this is central vertigo in origin as her neurological exam is completely normal. Discharge her on meclizine as well.. 22:13 Patient medically screened. sp3 22:34 ED course: X-rays images reviewed by me demonstrate no fracture or abnormality. sp3 Anterior fat pad is appreciated without sail sign. No posterior fat pad is present. Diagnosed patient with elbow contusion/sprain with OTC meds as needed for pain control. Also discharged on meclizine as needed with follow-up to PCP as needed.. 07/06 21:58 Order name: Elbow Right 3 View XRAY sp3 Administered Medications: No medications were administered Disposition Summary: 07/06/22 22:36 Discharge Ordered Location: Home sp3 Condition: Stable sp3 Diagnosis - Elbow sprain, right elbow contusion, benign positional vertigo sp3 Followup: sp3 - With: Private Physician - When: Upon discharge from the Emergency Department - Reason: Continuance of care Discharge Instructions: - Discharge Summary Sheet sp3 - Benign Positional Vertigo sp3 - Elbow Contusion sp3 Forms: - Medication Reconciliation Form sp3 - Thank You Letter sp3 - Antibiotic Education sp3 - Prescription Opioid Use sp3 Prescriptions: - Meclizine 25 mg Oral Tablet - take 1 tablet by ORAL route every 8 hours As needed; 30 tablet; Refills: 0, sp3 Product Selection Permitted Signatures: Dispatcher [employer] Nicci Brock MD MD sp3 Lizet Brooks RN RN ll3
--- NOTE | 2022-07-06 22:43 | RAD REPORT ---
EXAM DESCRIPTION: RAD - Elbow Right 3 View - 07/06/2022 10:27 pm CLINICAL HISTORY: Smash injury COMPARISON: None. FINDINGS: Three views of the right elbow. Mildly displaced fracture of the head of the radius, with intra-articular extension. There is distrac tion of approximately 3 millimeter across the articular surface. There is no dislocation or periosteal reaction noted. No foreign body. Soft tissue swelling with an e lbow joint effusion. IMPRESSION: Displaced intra-articular fracture at the head of the radius. Elbow joint effusion.
[2022-07-06 22:55] VITALS: BP 117/75; TEMP 98.7; O2SAT 100
== END 2022-07-06 22:43 | disposition home or self-care (01) ==
LOC: ER 20:26
DX: S53.401A Unspecified sprain of right elbow, initial encounter (principal); S50.01XA Contusion of right elbow, initial encounter; H81.10 Benign paroxysmal vertigo, unspecified ear; I10 Essential (primary) hypertension; F17.210 Nicotine dependence, cigarettes, uncomplicated
CPT/HCPCS: 99282